=== PATIENT | female | born 1955 | race Caucasian/White ===

== ENCOUNTER → 2024-02-22 12:14 | Outpatient (CLI) | payer MEDICARE, OTHER, SELFPAY ==
--- NOTE | 2024-02-22 12:19 | DI.ECHO.S_ITS ---
[facility] : : [facility] : : [facility] : : [place], : : [place] [id number] : : Phone: [phone] Echocardiogram Report + + :Name: JOSE M BERTRAND Study Date: 02/22/2024 Height: 66 in : :[facility] ReadingLocation: Weight: 140 lb : : Gender: Female BSA: 1.7 m2 : :: 1955 Age: 68 yrs BP: 150/97 mmHg: :Reason For Study: SYSTOLIC HEART FAILURE : :Ordering Physician: FATEMEH, : :MANINDER Performed By: Vijay Smith : :Referring: MANINDER BELL : + + Interpretation Summary The ejection fraction is estimated to be 35-40%. Left ventricular systolic function has moderately improved compared to the previous exam. Similar wall motion abnormalities comparing to prior echo on 05/02/2023. Procedure: A two-dimensional transthoracic echocardiogram with color flow Doppler was performed. The study quality was technically adequate. Comparison is made with the echocardiogram of 05/02/23. The patient was in sinus rhythm with heart rates between 58-69 bpm during the exam. Left Ventricle: The left ventricle is normal in size and wall thickness. The ejection fraction is estimated to be 35-40%. Left ventricular systolic function has moderately improved compared to the previous exam. Similar wall motion abnormalities comparing to prior echo on 05/02/2023. Great Vessels: The aortic root is mildly dilated. The ascending aorta is mildly enlarged. The IVC is of normal diameter and collapses greater than 50% with a sniff. This suggests a low right atrial pressure of 3 mm Hg. MMode/2D Measurements & Calculations LVIDd: 4.7 cm Ao root diam: 3.7 cm LVIDs: 3.9 cm asc Aorta Diam: 3.8 cm IVSd: 1.1 cm LVPWd: 0.99 cm LV wilson. diameter/BSA (cm/m^2): 2.7 LV sys. diameter/BSA (cm/m^2): 2.3 FS: 16.7 % Reading Physician:05:25 PM
== END ==
PROVIDERS: Referring Provider Internal Medicine Cardiovascular Disease; Visit Provider Internal Medicine Cardiovascular Disease
DX: I77.810 Thoracic aortic ectasia (principal); I77.89 Other specified disorders of arteries and arterioles; I50.22 Chronic systolic (congestive) heart failure
CPT/HCPCS: 93307